=== PATIENT | male | born 1965 | race Hispanic/Latino ===

== ENCOUNTER 2018-02-09 16:32 | Inpatient (IN) | payer BC, SELFPAY ==
[2018-02-09] MEDS ORDERED: LABETALOL 20 MG/4ML SYRINGE IV ONE (17:40)
--- NOTE | 2018-02-09 18:06 | RAD REPORT ---
EXAM DESCRIPTION: CT - Head Brain Wo Cont - 02/09/2018 6:00 pm CLINICAL HISTORY: DIZZINESS Headache, visual disturbance COMPARISON: CT-STROKE BRAIN W/O CONTRAST dated 10/15/2014 TECHNIQUE: All CT scans are performed using dose optimization technique as appropriate and may inclu de automated exposure control or mA/KV adjustment according to patient size. FINDINGS: No intracranial hemorrhage, hydrocephalus or extra-axial fluid collection.Focal gliosis in the anterior right basal ganglia most compatible with old infarct.No areas of brain edema or evidenc e of midline shift. The paranasal sinuses and mastoids are clear. The calvarium is intact. IMPRESSION: No acute intracranial abnormality.
[2018-02-09 18:08] LABS: Absolute Lymphocytes (CBC) 1.9 K/uL (0.7-4.9); Absolute Monocytes 0.6 K/uL (0.1-1.3); Basophils % 0.3 % (0-1.3); Eosinophils % 1.2 % (0-4.4); Hematocrit 44.6 % (39.6-49.0); Lymphocytes % 24.7 % (15.3-44.8); MCH 31.1 pg (27.0-35.0); MCV 91.1 fL (80-100); MPV 7.7 fL (7.6-11.3); Monocytes % 7.5 % (3.3-12.3); Protime INR 0.82
[2018-02-09 18:16] LABS: ALT/SGPT 36 U/L (12-78); AST/SGOT 23 U/L (15-37); Albumin 3.8 g/dL (3.4-5.0); Alkaline Phosphatase 53 U/L (45-117); BUN Blood Urea Nitrogen 18 mg/dL (7-18); Bicarbonate 24 mmol/L (21-32); Bilirubin Direct < 0.1 mg/dL (0-0.2); Bilirubin Total 0.3 mg/dL (0.2-1.0); NT PRO-BNP 61 pg/mL (<125); Potassium 4.5 mmol/L (3.5-5.1); Sodium Level 136 mmol/L (136-145)
[2018-02-09 18:18] LABS: Glucose Level 401 mg/dL (74-106)
--- NOTE | 2018-02-09 18:24 | ER ---
Nurse's Notes [facility] Name: Jose Ramon Juan Age: 52 yrs Sex: Male : 1965 Arrival Date: 02/09/2018 Time: 16:35 Bed 28 Private MD: Brad Gurrola T Diagnosis: Essential (primary) hypertension;Type 2 diabetes mellitus with hyperglycemia;Cerebral infarction Presentation: 02/09 16:36 Presenting complaint: Patient states: Last , i started having dizziness spells, hj and double vision; reports nausea and vomiting; denies headache, today i started having tingling sensation; denies weakness, denies chest pain; hx of stroke, 3 years ago;. Transition of care: patient was not received from another setting of care. Onset of symptoms was February 09, 2018. Risk Assessment: Do you want to hurt yourself or someone else? Patient reports no desire to harm self or others. Initial Sepsis Screen: Does the patient meet any 2 criteria? No. Patient's initial sepsis screen is negative. Does the patient have a suspected source of infection? No. Patient's initial sepsis screen is negative. Care prior to arrival: None. 16:36 Method Of Arrival: Ambulatory 16:36 Acuity: SOURAV 3 hj Triage Assessment: 16:38 General: Appears in no apparent distress. uncomfortable, Behavior is calm, cooperative, hj appropriate for age. Pain: Denies pain. Historical: - Allergies: 16:38 No Known Drug Allergies; hj - Home Meds: 16:38 None [Active]; hj - PMHx: 16:38 CVA; Hypertension; Diabetes - NIDDM; hj - PSHx: 16:38 None; hj - Immunization history:: Adult Immunizations not up to date. - Social history:: Smoking status: Patient/guardian denies using tobacco, Patient/guardian denies using alcohol. - Ebola Screening: : Patient negative for fever greater than or equal to 101.5 degrees Fahrenheit, and additional compatible Ebola Virus Disease symptoms Patient denies exposure to infectious person Patient denies travel to an Ebola-affected area in the 21 days before illness onset. Screenin:38 Abuse screen: Denies threats or abuse. Denies injuries from another. Nutritional hj screening: No deficits noted. Tuberculosis screening: No symptoms or risk factors identified. Fall Risk None identified. Assessment: 17:14 General: Appears comfortable, Behavior is calm, cooperative. Pain: Denies pain. Neuro: mg2 Level of Consciousness is awake, alert, obeys commands, Oriented to person, place, time, situation. Cardiovascular: Capillary refill < 3 seconds Patient's skin is warm and dry. Respiratory: Airway is patent Respiratory effort is even, unlabored, Respiratory pattern is regular, symmetrical. GI: No signs and/or symptoms were reported involving the gastrointestinal system. : No signs and/or symptoms were reported regarding the genitourinary system. EENT: No signs and/or symptoms were reported regarding the EENT system. Derm: Skin is intact, Skin is pink, warm \T\ dry. normal. Musculoskeletal: No signs and/or symptoms reported regarding the musculoskeletal system. 21:44 Reassessment: 2nd floor nurse will call back to receive the report. mg2 Vital Signs: 16:38 BP 191 / 103; Pulse 110; Resp 18; Temp 98.2(O); Pulse Ox 99% on R/A; Weight 111.13 kg; hj Height 5 ft. 8 in. (172.72 cm); Pain 0/10; 17:15 BP 200 / 112; Pulse 102; Resp 18; Pulse Ox 98% on R/A; Pain 0/10; mg2 18:22 BP 126 / 66; Pulse 103; Resp 18; Pulse Ox 98% on R/A; Pain 0/10; mg2 20:39 BP 136 / 71; Pulse 98; Resp 18; Pulse Ox 98% on R/A; Pain 0/10; mg2 16:38 Body Mass Index 37.25 (111.13 kg, 172.72 cm) hj NIH Stroke Scale Scores: 17:32 NIHSS Score: [address] [facility] ED Course: 16:35 Patient arrived in ED. rg4 16:35 Brad Gurrola MD is Private Physician. rg4 16:37 Triage completed. hj 16:38 Arm band placed on right wrist. hj 16:38 Patient has correct armband on for positive identification. Placed in gown. Bed in low hj position. Call light in reach. Side rails up X 1. 17:07 Félix Jarvis, RN is Primary Nurse. mg2 17:09 EKG done, by bike technician. reviewed by Yousif Helms MD. 3 17:16 Everton Henry PA is PHCP. jr8 17:16 Yousif Helms MD is Attending Physician. jr8 17:46 Inserted saline lock: 20 gauge in left antecubital area, using aseptic technique. Blood mg2 collected. 17:59 CT Head Brain wo Cont In Process Unspecified. EDMS 17:59 [address] completed. Patient moved to CT via wheelchair. Patient moved back from CT. kw1 18:21 Bruna Pino MD is Hospitalizing Provider. jr8 18:31 XRAY Chest (1 view) In Process Unspecified. EDMS 21:44 No provider procedures requiring assistance completed. Patient admitted, IV remains in mg2 place. Administered Medications: 17:46 Drug: Labetalol 10 mg Route: IVP; Infused Over: 2 mins; Site: left antecubital; mg2 18:22 Follow up: Response: No adverse reaction; Blood pressure is lowered mg2 18:30 Drug: NS 0.9% 1000 ml Route: IV; Rate: 1000 ml; Site: left antecubital; mg2 22:15 Follow up: Response: No adverse reaction; IV Status: Completed infusion mg2 18:33 Drug: Insulin Regular Human 10 units {Co-Signature: kr2 (Shu Proctor RN).} Route: IVP; mg2 Site: left antecubital; 22:15 Follow up: Response: No adverse reaction; Blood sugar is lowered mg2 Point of Care Testing: Blood Glucose: 19:37 Blood Glucose: 243 mg/dL; mg2 Ranges: Outcome: 18:23 Decision to Hospitalize by Provider. jr8 22:15 Admitted to Med/surg accompanied by tech, via wheelchair, room 228, with chart, Report mg2 called to Juan Carlos 22:15 Condition: stable 22:15 Instructed on the need for admit, Demonstrated understanding of instructions. 22:16 Patient left the ED. mg2 NIH Stroke Scale - NIH Stroke Score Date: 02/09/2018 Time: 17:32 Total Score = 1 1a. Level of Consciousness (LOC) - 0(Alert) 1b. Level of Consciousness (LOC) (Year \T\ Age) - 0(Both) 1c. LOC Commands (Open \T\ Closes Eyes/Category Specialist) - 0(Both) 2. Best Gaze (Lateral Gaze Paresis) - 0(Normal) 3. Visual Field Loss - 0(No visual loss) 4. Facial Palsy - 0(Normal) 5a. Left Arm: Motor (10-second hold) - 0(No drift) 5b. Right Arm: Motor (10-second hold) - 0(No drift) 6a. Left Leg: Motor (5-second hold - always test supine) - 0(No drift) 6b. Right Leg: Motor (5-second hold - always test supine) - 0(No drift) 7. Limb Ataxia (finger/nose \T\ heel/whatley - test with eyes open) - 0(Absent) 8. Sensory Loss (pinprick arms/legs/face) - 1(Mild to moderate loss) 9. Best Language: Aphasia (description/naming/reading) - 0(No aphasia) 10. Dysarthria (speech clarity - read or repeat words) - 0(Normal) 11. Extinction and Inattention (visual/tactile/auditory/spatial/personal) - 0(No abnormality) Initials: jr8 Signatures: Dispatcher [employer] EDMS Everton Henry PA PA jr8 Sterling Maravilla RN RN Michelle Joshua 4 Mariaelena Butt1 Félix Jarvis RN RN [facility] [place] [place] Krystin Hummel 3 Shu Proctor RN kr2 Corrections: (The following items were deleted from the chart) 16:39 16:36 Presenting complaint: Patient states: Last , i started having dizziness spells, and double vision; reports nausea and vomiting; denies headache, today i started having tingling sensation; 16:40 16:38 111.13 kg; Height 5 ft. 8 in.; BMI: 37.2; Pain 0/10; [facility] 16:41 16:36 Presenting complaint: Patient states: Last , i started having dizziness spells, and double vision; reports nausea and vomiting; denies headache, today i started having tingling sensation; hx of stroke, 3 years ago; 16:41 16:38 Pulse 110bpm; Resp 18bpm; Pulse Ox 99% RA; Temp 98.2F Oral; 111.13 kg; hj Height 5 ft. 8 in.; BMI: 37.2; Pain 0/10; 16:43 16:36 Acuity: SOURAV 4 [facility]
--- NOTE | 2018-02-09 18:24 | EDPHYS ---
Physician Documentation [facility] Name: Jose Ramon Juan Age: 52 yrs Sex: Male : 1965 Arrival Date: 02/09/2018 Time: 16:35 Bed 28 Private MD: Brad Gurrola T ED Physician Yousif Helms HPI: 02/09 17:32 This 52 yrs old Male presents to ER via Ambulatory with complaints of jr8 Dizziness. 17:32 The patient presents with dizziness, lightheadedness, feeling off balance. Onset: The jr8 symptoms/episode began/occurred acutely, 4 day(s) ago. Context: occurred at home. Modifying factors: The symptoms are alleviated by nothing, the symptoms are aggravated by standing up, changing position. Associated signs and symptoms: Pertinent positives: numbness, tingling. Severity of symptoms: At their worst the symptoms were moderate in the emergency department the symptoms are unchanged. Patient's baseline: Neuro: alert and fully oriented, Motor: no deficits, Ambulation: walks without assistance, Speech: normal. The patient has not experienced similar symptoms in the past. The patient has not recently seen a physician. History of CVA in past. Non compliant with all medicines currently due to lac of insurance . Historical: - Allergies: 16:38 No Known Drug Allergies; hj - Home Meds: 16:38 None [Active]; hj - PMHx: 16:38 CVA; Hypertension; Diabetes - NIDDM; hj - PSHx: 16:38 None; hj - Immunization history:: Adult Immunizations not up to date. - Social history:: Smoking status: Patient/guardian denies using tobacco, Patient/guardian denies using alcohol. - Ebola Screening: : Patient negative for fever greater than or equal to 101.5 degrees Fahrenheit, and additional compatible Ebola Virus Disease symptoms Patient denies exposure to infectious person Patient denies travel to an Ebola-affected area in the 21 days before illness onset. ROS: 17:32 Eyes: Negative for injury, pain, redness, and discharge, ENT: Negative for injury, jr8 pain, and discharge, Neck: Negative for injury, pain, and swelling, Cardiovascular: Negative for chest pain, palpitations, and edema, Respiratory: Negative for shortness of breath, cough, wheezing, and pleuritic chest pain, Abdomen/GI: Negative for abdominal pain, nausea, vomiting, diarrhea, and constipation, Back: Negative for injury and pain, MS/Extremity: Negative for injury and deformity, Skin: Negative for injury, rash, and discoloration. 17:32 Neuro: Positive for dizziness, numbness, tingling, visual changes, Negative for altered mental status, gait disturbance, loss of consciousness, seizure activity, speech changes, tremor, weakness. Exam: 17:32 Eyes: Pupils equal round and reactive to light, extra-ocular motions intact. Lids and jr8 lashes normal. Conjunctiva and sclera are non-icteric and not injected. Cornea within normal limits. Periorbital areas with no swelling, redness, or edema. ENT: Nares patent. No nasal discharge, no septal abnormalities noted. Tympanic membranes are normal and external auditory canals are clear. Oropharynx with no redness, swelling, or masses, exudates, or evidence of obstruction, uvula midline. Mucous membranes moist. Neck: Trachea midline, no thyromegaly or masses palpated, and no cervical lymphadenopathy. Supple, full range of motion without nuchal rigidity, or vertebral point tenderness. No Meningismus. Cardiovascular: Sinus Tachycardia with noram rhythm and a normal S1 and S2. No gallops, murmurs, or rubs. Normal PMI, no JVD. No pulse deficits. Respiratory: Lungs have equal breath sounds bilaterally, clear to auscultation and percussion. No rales, rhonchi or wheezes noted. No increased work of breathing, no retractions or nasal flaring. Abdomen/GI: Soft, non-tender, with normal bowel sounds. No distension or tympany. No guarding or rebound. No evidence of tenderness throughout. Back: No spinal tenderness. No costovertebral tenderness. Full range of motion. Skin: Warm, dry with normal turgor. Normal color with no rashes, no lesions, and no evidence of cellulitis. MS/ Extremity: Pulses equal, no cyanosis. Neurovascular intact. Full, normal range of motion. 17:32 Neuro: Orientation: to person, place, time \T\ situation. Mentation: is normal, Memory: is normal, immediate memory is intact, recent memory is intact, remote memory is intact, Cranial nerves: CN I not tested, CN II- XII are normal as tested, visual gomez are intact. extraocular movements are intact, Facial palsy and sensory deficits are absent. Speech is clear and appropriate. Tongue strength is normal, Cerebellar function: normal finger to nose testing, heel to whatley testing is normal, Motor: moves all fours, strength is 5/5 in all extremities, Sensation: numbness, that is mild, of the right arm, tingling, that is mild, of the right arm, Gait: not tested. seizure activity, is not displayed by the patient, Abnormal movements: there are no abnormal movements. Vital Signs: 16:38 BP 191 / 103; Pulse 110; Resp 18; Temp 98.2(O); Pulse Ox 99% on R/A; Weight 111.13 kg; hj Height 5 ft. 8 in. (172.72 cm); Pain 0/10; 17:15 BP 200 / 112; Pulse 102; Resp 18; Pulse Ox 98% on R/A; Pain 0/10; mg2 18:22 BP 126 / 66; Pulse 103; Resp 18; Pulse Ox 98% on R/A; Pain 0/10; mg2 20:39 BP 136 / 71; Pulse 98; Resp 18; Pulse Ox 98% on R/A; Pain 0/10; mg2 16:38 Body Mass Index 37.25 (111.13 kg, 172.72 cm) NIH Stroke Scale Scores: 17:32 NIHSS Score: 1 jr8 MDM: 17:16 Patient medically screened. jr8 18:20 Data reviewed: vital signs, nurses notes, lab test result(s), EKG, radiologic studies, jr8 CT scan, plain films, and as a result, I will admit patient. Data interpreted: Pulse oximetry: on room air is 98 %. Interpretation: normal. Counseling: I had a detailed discussion with the patient and/or guardian regarding: the historical points, exam findings, and any diagnostic results supporting the discharge/admit diagnosis, lab results, radiology results, the need for further work-up and treatment in the hospital. 02/09 17:16 Order name: LFT's; Complete Time: 18:19 8 02/09 17:16 Order name: NT PRO-BNP; Complete Time: 18:19 8 02/09 17:16 Order name: Basic Metabolic Panel; Complete Time: 18:19 8 02/09 17:16 Order name: CBC with Diff; Complete Time: 18:8 02/09 17:16 Order name: Magnesium; Complete Time: 18:19 [facility] 02/09 17:16 Order name: PT-INR; Complete Time: 18:18 [facility] 02/09 17:16 Order name: Troponin (emerg Dept Use Only); Complete Time: 18:13 [facility] 02/09 17:16 Order name: XRAY Chest (1 view); Complete Time: 18:53 [facility] 02/09 17:25 Order name: CT Head Brain wo Cont; Complete Time: 18:10 [facility] 02/09 18:42 Order name: Echo with Doppler [facility] 02/09 18:42 Order name: Stroke Protocol [facility] 02/09 18:42 Order name: Carotid Artery Bilateral; Complete Time: 20:47 [facility] 02/09 20:03 Order name: Urine Dipstick--Ancillary (enter results) [facility] 02/09 20:07 Order name: Urine Dipstick-Ancillary; Complete Time: 20:16 [facility] 02/09 16:41 Order name: EKG; Complete Time: 16:41 02/09 17:16 Order name: Cardiac monitoring; Complete Time: 17:46 [facility] 02/09 17:16 Order name: EKG - Nurse/Tech; Complete Time: 17:46 [facility] 02/09 17:16 Order name: IV Saline Lock; Complete Time: 17:46 [facility] 02/09 17:16 Order name: Labs collected and sent; Complete Time: 17:46 [facility] 02/09 17:16 Order name: O2 Per Protocol; Complete Time: 17:32 [facility] 02/09 17:16 Order name: O2 Sat Monitoring; Complete Time: 17:32 [facility] 02/09 18:41 Order name: NPO [facility] 02/09 18:41 Order name: NPO [facility] 02/09 18:42 Order name: Physical Therapy Consult [facility] 02/09 18:42 Order name: Speech Therapy Consult [facility] 02/09 18:42 Order name: NPO [facility] 02/09 19:24 Order name: CONS Physician Consult [facility] 02/09 17:16 Order name: Urine Dipstick-Ancillary (obtain specimen); Complete Time: 22:15 jr8 Administered Medications: 17:46 Drug: Labetalol 10 mg Route: IVP; Infused Over: 2 mins; Site: left antecubital; mg2 18:22 Follow up: Response: No adverse reaction; Blood pressure is lowered mg2 18:30 Drug: NS 0.9% 1000 ml Route: IV; Rate: 1000 ml; Site: left antecubital; mg2 22:15 Follow up: Response: No adverse reaction; IV Status: Completed infusion mg2 18:33 Drug: Insulin Regular Human 10 units {Co-Signature: kr2 (Shu Proctor RN).} Route: IVP; mg2 Site: left antecubital; 22:15 Follow up: Response: No adverse reaction; Blood sugar is lowered mg2 Point of Care Testing: Blood Glucose: 19:37 Blood Glucose: 243 mg/dL; mg2 Ranges: Critical Glucose Levels:Adult <50 mg/dl or >400 mg/dl <40 mg/dl or >180 mg/dl Disposition: 02/10 07:02 Co-signature as Attending Physician, Yousif Helms MD I agree with the assessment and kostas plan of care. Disposition: 02/09/18 18:23 Hospitalization ordered by Bruna Pino for Inpatient Admission. Preliminary diagnosis are Essential (primary) hypertension, Type 2 diabetes mellitus with hyperglycemia, Cerebral infarction. - Bed requested for Telemetry/MedSurg (Inpatient). - Status is Inpatient Admission. mg2 - Condition is Stable. - Problem is new. - Symptoms are unchanged. UTI on Admission? No NIH Stroke Scale - NIH Stroke Score Date: 02/09/2018 Time: 17:32 Total Score = 1 1a. Level of Consciousness (LOC) - 0(Alert) 1b. Level of Consciousness (LOC) (Year \T\ Age) - 0(Both) 1c. LOC Commands (Open \T\ Closes Eyes/Underwriting Operations Manager) - 0(Both) 2. Best Gaze (Lateral Gaze Paresis) - 0(Normal) 3. Visual Field Loss - 0(No visual loss) 4. Facial Palsy - 0(Normal) 5a. Left Arm: Motor (10-second hold) - 0(No drift) 5b. Right Arm: Motor (10-second hold) - 0(No drift) 6a. Left Leg: Motor (5-second hold - always test supine) - 0(No drift) 6b. Right Leg: Motor (5-second hold - always test supine) - 0(No drift) 7. Limb Ataxia (finger/nose \T\ heel/whatley - test with eyes open) - 0(Absent) 8. Sensory Loss (pinprick arms/legs/face) - 1(Mild to moderate loss) 9. Best Language: Aphasia (description/naming/reading) - 0(No aphasia) 10. Dysarthria (speech clarity - read or repeat words) - 0(Normal) 11. Extinction and Inattention (visual/tactile/auditory/spatial/personal) - 0(No abnormality) Initials: jr8 Signatures: Dispatcher [employer] EDMS Mariaelena Diaz RN RN Yousif Mcdonald MD MD cha Roszak, Josh, PA PA jr8 Sterling Maravilla RN RN hj Félix Jarvis RN RN mg2 Shu Proctor RN kr2 Corrections: (The following items were deleted from the chart) 02/09 21:11 18:23 Hospitalization Ordered by Bruna Pino MD for Inpatient Admission. kl Preliminary diagnosis is Essential (primary) hypertension; Type 2 diabetes mellitus with hyperglycemia; Cerebral infarction. Bed requested for Telemetry/MedSurg (Inpatient). Status is Inpatient Admission. Condition is Stable. Problem is new. Symptoms are unchanged. UTI on Admission? No. jr8 22:16 21:11 02/09/2018 18:23 Hospitalization Ordered by Bruna Pino MD for Inpatient mg2 Admission. Preliminary diagnosis is Essential (primary) hypertension; Type 2 diabetes mellitus with hyperglycemia; Cerebral infarction. Bed requested for Telemetry/MedSurg (Inpatient). Status is Inpatient Admission. Condition is Stable. Problem is new. Symptoms are unchanged. UTI on Admission? No. kl
[2018-02-09] MEDS ORDERED: INSULIN -REGULAR HUMAN 50 UNIT/0.5 ML ML ONE (18:29)
[2018-02-09] MEDS ORDERED: NA CHLORIDE 0.9% 1,000 ML ONE (18:30)
[2018-02-09] MEDS ORDERED: ACETAMINOPHEN 500 MG TAB PO PRN (18:34)
[2018-02-09] MEDS ORDERED: ONDANSETRON 4 MG/2 ML VIAL IV PRN (18:34)
--- NOTE | 2018-02-09 18:44 | RAD REPORT ---
EXAM DESCRIPTION: RAD - Chest Single View - 02/09/2018 6:31 pm CLINICAL HISTORY: dizziness Chest pain. COMPARISON: <Comparisons> FINDINGS: Portable technique limits examination quality. The lungs are grossly clear. The heart is normal in size. No displaced fractures. IMPRESSION: No acute intrathoracic process suspected.
--- NOTE | 2018-02-09 19:09 | EKG ---
Test Date: 2018-02-09 Test Time: 16:48:57 Printing Press Operator: [place] MEASUREMENT RESULTS: Intervals: Rate: 106 SD: 160 QRSD: 82 QT: 332 QTc: 441 [place]: P: 50 SD: 160 QRS: 41 T: 256 INTERPRETIVE STATEMENTS: Sinus tachycardia T wave abnormality, consider inferior ischemia Abnormal ECG Compared to ECG 10/15/2014 18:04:10 T-wave abnormality now present Possible ischemia now present Sinus rhythm no longer present Left ventricular hypertrophy no longer present Electronically Signed On 02-09-18 19:08:10 CDT by Mark Cook
[2018-02-09 20:07] LABS: Urine Blood 1+ (NEG); Urine Glucose 2+ (NEG); Urine Protein NEGATIVE (NEG); Urine Specific Gravity 1.015 (1.005-1.030); Urine pH 5.5 (5.0-7.0)
--- NOTE | 2018-02-09 20:40 | RAD REPORT ---
EXAM DESCRIPTION: VAS - CP - 02/09/2018 8:34 pm CLINICAL HISTORY: CVA COMPARISON: Head Brain Wo Cont dated 02/09/2018 TECHNIQUE: Real-time sonographic evaluation of both carotid systems was performed. Doppler interroga tion was performed with waveform tracing bilaterally. FINDINGS: Normal high resistance waveforms are noted in both external carotid arteries. The common c arotid arteries and internal carotid arteries show normal low resistance waveforms. Mild hard plaque is present in both carotid bulbs. Peak systolic and end diastolic velocity values an d the ICA/CCA ratios are in the non-hemodynamically significant range. Antegrade flow seen in both vertebral arteries. IMPRESSION: Mild hard plaque is present in both carotid bulbs. No evidence of a hemodynamically significant stenosis.
[2018-02-09 22:37] VITALS: BMI 37.4
[2018-02-09] MEDS: NA CHLORIDE 0.9% 1,000 ML IV SCH (23:46)
[2018-02-09] MEDS: ATORVASTATIN 20 MG TAB PO SCH (23:46)
[2018-02-09] MEDS: CLOPIDOGREL 75 MG TABLET PO SCH (23:47)
[2018-02-09] MEDS: INSULIN -REGULAR HUMAN 50 UNIT/0.5 ML ML SQ SCH (23:47)
[2018-02-09] MEDS: ENOXAPARIN 40 MG/0.4 ML SQ SCH (23:47)
--- NOTE | 2018-02-10 05:22 | P.HP ---
Certification for Inpatient Patient admitted to: Observation With expected LOS: <2 Midnights Patient will require the following post-hospital care: None Practitioner: I am a practitioner with admitting privileges, knowledge of patient current condition, hospital course, and medical plan of care. Services: Services provided to patient in accordance with Admission requirements found in Title 42 Section 412.3 of the Code of Federal Regulations Patient History Date of Service: 02/09/18 Reason for admission: Dizziness/CVA vs. TIA/uncontrolled hypertension History of Present Illness: Patient is a 52-year-old gentleman who came into the hospital with dizziness. He started having dizziness a few days ago and his symptoms got progressively worse. He came into the emergency room for further evaluation. Patient was diagnose with a CVA 2 and half years ago. At that time his blood pressure was very poorly controlled. He woke up with the right side of his body weak. He and get evaluated for a day and a half and he was told later that he had a stroke. He was started on cholesterol medicine and anti-platelet medicine. However, he lost his job or he changed jobs and did not have health insurance anymore. He has not been taking any medicine for about a year. His blood pressure has been poorly controlled but today was much higher than normal. Arriving into the emergency room, his blood pressure was 190/100. Patient had right-sided weakness once again. This was along with the dizziness he was experiencing. He was also found to have an elevated blood sugar of greater than 400. He was admitted to the hospital for further workup for possible stroke if poorly-controlled blood pressure and blood sugars. Allergies No Known Drug Allergies Allergy (Verified 02/10/18 02:17) Unknown Home Medications: NK [No Home Meds] 02/09/18 - Past Medical/Surgical History Has patient received pneumonia vaccine in the past: No Diabetic: Yes -: HTN -: DM -: CVA Past Surgical History: Patient denies surgical history - Family History Father Medical History: Cancer Mother Medical History: Heart disease, Hypertension, Diabetes - Social History Smoking Status: Never smoker Alcohol use: No CD- Drugs: No Caffeine use: Yes Place of Residence: Home Review of Systems 10-point ROS is otherwise unremarkable Physical Examination - Vital Signs Temperature: 97.7 F Blood Pressure: 158/93 Pulse: 89 Respirations: 20 Pulse Ox (%): 96 - Physical Exam General: Alert, In no apparent distress, Oriented x3 HEENT: Atraumatic, PERRLA, Mucous membr. moist/pink, EOMI, Sclerae nonicteric Neck: Supple, 2+ carotid pulse no bruit, No LAD, Without JVD or thyroid abnormality Respiratory: Clear to auscultation bilaterally, Normal air movement Cardiovascular: Regular rate/rhythm, Normal S1 S2, No murmurs Gastrointestinal: Normal bowel sounds, Soft and benign, Non-distended, No tenderness, No rebound, No guarding Musculoskeletal: No clubbing, No swelling, No tenderness Integumentary: No rashes Neurological: Normal gait, Normal speech, Normal strength at 5/5 x4 extr, Normal tone, Sensation intact, Cranial nerves 3-12 intact, Normal affect Lymphatics: No axilla or inguinal lymphadenopathy - Studies Laboratory Data (last 24 hrs) 02/09/18 17:40: PT 9.6, INR 0.82 02/09/18 17:40: WBC 7.6, Hgb 15.2, Hct 44.6, Plt Count 249 02/09/18 17:40: Sodium 136, Potassium 4.5, BUN 18, Creatinine 1.00, Glucose 401 H*, Magnesium 2.0, Total Bilirubin 0.3, AST 23, ALT 36, Alkaline Phosphatase 53 Assessment & Plan - Problems (Diagnosis) (1) TIA (transient ischemic attack) Current Visit: Yes Status: Acute (2) Hypertension, malignant Current Visit: Yes Status: Acute (3) Hyperglycemia Current Visit: Yes Status: Acute (4) DM type 2, uncontrolled, with neuropathy Current Visit: Yes Status: Acute - Plan Plan: 1. Anti-platelet therapy 2. Statin therapy 3. PT evaluation 4. MRI of the brain 5. Echocardiogram 6. Lipid profile 7. DVT prophylaxis 8. Neurology consultation 9. Strict blood pressure and blood sugar control 10. GI and DVT prophylaxis Discharge Plan: Home Plan to discharge in: 24 Hours - Advance Directives Does patient have a Living Will: No Does patient have a Durable POA for Healthcare: No - Code Status/Comfort Care Code Status Assessed: Yes Code Status: Full Code Critical Care: No Time Spent Managing PTS Care (In Minutes): 50
[2018-02-10 05:49] LABS: Absolute Lymphocytes (CBC) 2.1 K/uL (0.7-4.9); Absolute Monocytes 0.5 K/uL (0.1-1.3); Absolute Neutrophil 3.6 K/uL (1.8-8.0); Basophils % 0.4 % (0-1.3); Eosinophils % 1.8 % (0-4.4); Hematocrit 39.9 % (39.6-49.0); Lymphocytes % 33.7 % (15.3-44.8); MCH 31.9 pg (27.0-35.0); MCV 90.2 fL (80-100); MPV 7.4 fL (7.6-11.3); Monocytes % 7.4 % (3.3-12.3); RBC Red Blood Cell Count 4.42 M/uL (4.33-5.43)
[2018-02-10 05:59] LABS: ALT/SGPT 30 U/L (12-78); AST/SGOT 16 U/L (15-37); Albumin 3.5 g/dL (3.4-5.0); Alkaline Phosphatase 44 U/L (45-117); BUN Blood Urea Nitrogen 9 mg/dL (7-18); Bicarbonate 27 mmol/L (21-32); Bilirubin Total 0.3 mg/dL (0.2-1.0); Glucose Level 188 mg/dL (74-106); HDL Cholesterol 42 mg/dL (40-60); LDL Cholesterol, Calculated 150 (<130); Potassium 3.5 mmol/L (3.5-5.1); Sodium Level 140 mmol/L (136-145)
[2018-02-10] MEDS ORDERED: VALSARTAN 160 MG TAB PO SCH (06:00)
[2018-02-10] MEDS ORDERED: VALSARTAN 80 MG TAB ONE (06:41)
[2018-02-10] MEDS: INSULIN -REGULAR HUMAN 50 UNIT/0.5 ML ML SQ SCH ×5 (07:30→21:37)
[2018-02-10] MEDS: NA CHLORIDE 0.9% 1,000 ML IV SCH ×2 (08:20→21:38)
[2018-02-10] MEDS ORDERED: ASPIRIN EC 81 MG TAB PO SCH (09:00)
[2018-02-10] MEDS ORDERED: VALSARTAN 80 MG TAB PO SCH (09:00)
[2018-02-10] MEDS ORDERED: POTASSIUM 25 MEQ EFFERV TAB PO ONE (09:00)
[2018-02-10] MEDS: ENOXAPARIN 40 MG/0.4 ML SQ SCH (10:24)
[2018-02-10] MEDS: CLOPIDOGREL 75 MG TABLET PO SCH (10:25)
--- NOTE | 2018-02-10 10:34 | RAD REPORT ---
EXAM DESCRIPTION: MRI - Stroke Protocol - 02/10/2018 10:03 am CLINICAL HISTORY: dizziness, CVA, diplopia CVA. COMPARISON: Head Brain Wo Cont dated 02/09/2018; CT-STROKE BRAIN W/O CONTRAST dated 10/15/2014; Carotid Artery Bilateral dated 02/09/2018 TECHNIQUE: MRI of brain with diffusion-weighted imaging with contrast 3D [id number] non contrast MR angiography of the [place]. 2D [id number] post contrast MR angiography of the neck vessels. Approximately 20 cc of Magnevist contrast was administered during the study. FINDINGS: Crescentic area of restricted diffusion and is seen in the left lateral aspect of the rod measuring 15 x 6 mm. This area demonstrates diminished ADC mapping compatible with acute CVA. No hem orrhagic component seen. No intracranial hemorrhage, hydrocephalus or midline shift. Gliosis in the region of the right basal ganglia anteriorly small is compatible with old infarct. The midline structures are normally formed. Post-contrast imaging through the brain shows no abnormal enhancement to suggest tumor or infection. Mastoid air cells and paranasal sinuses are clear. MR angiography of the [place] shows no aneurysm or vascular malformation. Evidence of a foca l prominent stenosis of midbasilar artery is noted. MR angiography of the neck vessels shows no significant carotid stenosis. Antegrade flow is seen in b oth vertebral arteries. IMPRESSION: Acute nonhemorrhagic CVA (15 x 6 mm) left lateral rod. 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 Findings were discussed with Dr. Pino at 10:30 a.m. 02/10/2018 by telephone.
--- NOTE | 2018-02-10 14:55 | PN ---
Date of Progress Note: 02/10/2018 Subjective: The patient is seen and examined. Chart reviewed and case discussed with RN. The patie nt doing well. His diplopia has improved. Review of Systems: Negative except as above. Medications: List reviewed. Physical Examination: Vital Signs: Temperature 97.2, heart rate 80, blood pressure 154/83, respirations 18, O2 96% on room air. General: Awake, alert, oriented x3, not in any acute distress. Obese male, BMI 37.4. CV: S1, S2. No murmurs. Peripheral pulses present. Regular rate and rhythm. Respiratory: Clear to auscultation bilaterally. No wheezing. No stridor. No use of accessory musc les. Gastrointestinal: Abdomen is soft, nontender, nondistended. Positive bowel sounds. Extremities: No clubbing, cyanosis, or edema. Neuro: Cranial nerves 2 through 12 intact grossly. The patient does have some nystagmus. Strength is 5/5 bilateral upper and lower extremities. Sensation intact to light touch. Speech is normal. N o facial asymmetry. Laboratory Data: Sodium 140, potassium 3.5, chloride 107, CO2 27, BUN 9, creatinine 0.6, glucose 188 , calcium 8.5. Triglycerides 259, cholesterol 244, LDL 150, HDL 42. WBC 6.3, H and H 14.1 and 39.9, platelets 231. Head MRI, MRA neck shows acute nonhemorrhagic CVA 15 x 6 mm in the left lateral rod , focal moderate to significant stenosis suspected in the mid basilar artery. Assessment And Plan: A 52-year-old male with: 1.Acute cerebrovascular accident, left lateral rod. MRI reviewed. Further workup pending. Ultras ound of the carotid artery shows mild hard plaque in both carotid bulbs. No evidence of hemodynamica lly significant stenosis. 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 We will discuss with neurologist, Dr. Shani regarding further intervention and possible transfer. Fo r now, the patient will be on aspirin and Plavix. The patient had not been taking his medications fo r 1 year or longer. 2.Accelerated hypertension, not well controlled. We will resume p.o. medications. The patient has not been on any medications for the past year. 3.Diabetes mellitus type 2, uncontrolled with hyperglycemia and neuropathy, non-insulin requiring. 4.Previous history of cerebrovascular accident. 5.Noncompliant. 6.Gastrointestinal and deep venous thrombosis prophylaxis with PPI and Lovenox. Plan: We will allow permissive hypertension due to acute stroke with systolics in the 160s to 180s a nd we will discuss with Neurology for possible intervention and transfer if needed. Follow up an ech ocardiogram. /ANATOLY Voice ID: [id number] Report ID: [id number]
--- NOTE | 2018-02-10 14:58 | ECHO ---
HEIGHT: 5 ft 8 in WEIGHT: 246 lb 0 oz DATE OF STUDY: 02/10/[address]: Bruna Pino MD 2-DIMENSIONAL: YES M.MODE: YES DOPPLER: YES COLOR FLOW: YES TDS: NO PORTABLE: NO DEFINITY: NO BUBBLE STUDY: NO DIAGNOSIS: STROKE CARDIAC HISTORY: CATHERIZATION: NO SURGERY: NO PROSTHETIC VALVE: NO PACEMAKER: NO MEASUREMENTS (cm) DIASTOLIC (NORMALS) SYSTOLIC (NORMALS) IVSd 1.0 (0.6-1.2) LA Diam 2.5 (1.9-4.0) LVEF 52% LVIDd 3.5 (3.5-5.7) LVIDs 2.6 (2.0-3.5) %FS 26% LVPWd 0.9 (0.6-1.2) Ao Diam 3.2 (2.0-3.7) 2 DIMENSIONAL ASSESSMENT: RIGHT ATRIUM: NORMAL LEFT ATRIUM: NORMAL RIGHT VENTRICLE: NORMAL LEFT VENTRICLE: NORMAL TRICUSPID VALVE: NORMAL MITRAL VALVE: NORMAL PULMONIC VALVE: NORMAL AORTIC VALVE: NORMAL PERICARDIAL EFFUSION: NONE AORTIC ROOT: NORMAL LEFT VENTRICULAR WALL MOTION: NORMAL DOPPLER/COLOR FLOW: NORMAL COMMENTS: NORMAL 2D ECHOCARDIOGRAM WITH DOPPLER. NO WALL MOTION ABNORMALITY. NO EFFUSION. TECHNOLOGIST: Karmen DACOSTA
[2018-02-10 21:14] VITALS: BP 163/95; TEMP 97.4
[2018-02-10] MEDS: ATORVASTATIN 20 MG TAB PO SCH (21:37)
[2018-02-11 03:16] VITALS: O2SAT 94
--- NOTE | 2018-02-11 17:12 | DS ---
Date of Discharge: 02/10/2018 Consultants: Dr. Sahni with Neurology. Admitting Diagnoses: 1.Transient ischemic attack, rule out cerebrovascular accident. 2.Malignant hypertension. 3.Hyperglycemia. 4.Type 2 diabetes, uncontrolled with neuropathy. 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 2.Accelerated hypertension. 3.Diabetes mellitus type 2, uncontrolled with hyperglycemia and neuropathy, non-insulin requiring. 4.Previous history of cerebrovascular accident. 5.Noncompliance. Hospital Course: The patient is a 52-year-old male, who is noncompliant with his medications for at least the past year, comes in with dizziness, diplopia. The patient was admitted to the hospital for further evaluation. He did have uncontrolled blood pressure in the 190s over 100s. His blood sugar s were in the 400s. The patient was admitted for rule out CVA. Head CT scan did not show any acute abnormalities. MRA and MRI neck were done, which showed an acute nonhemorrhagic CVA in the left late ral rod and showed focal moderate to significant stenosis suspected in the mid basilar artery. Dr. Sahni, neurologist, was consulted on the case, recommended transfer to higher level of care for po ssible intervention for this stenosis of the basilar artery with angioplasty or local thrombectomy. The patient was then referred for higher level of care in [facility] and was accepted. The patient was discharged in a fair condition for intervention for his basilar artery stenosis. Physical Examination: For physical exam findings, please see progress note dictated on the day of discharge. /ANATOLY Voice ID: [id number] Report ID: [id number]
== END 2018-02-10 23:00 | disposition short-term general hospital (02) | DRG 66 ==
LOC: ER 16:32 → INTOOBSV 19:23 → ERHOLD 19:23 → 2ND 21:14 → OBSVTOIN 02-10 10:44
PROVIDERS: ADMIT Family Medicine; ATTEND Family Medicine
DX: I63.9 Cerebral infarction, unspecified (principal); E11.65 Type 2 diabetes mellitus with hyperglycemia; I10 Essential (primary) hypertension; I65.1 Occlusion and stenosis of basilar artery; E11.40 Type 2 diabetes mellitus with diabetic neuropathy, unspecified; Z86.73 Personal history of transient ischemic attack (TIA), and cerebral infarction without residual deficits; R29.701 NIHSS score 1; Z91.14 Patient's other noncompliance with medication regimen; E66.9 Obesity, unspecified; Z68.37 Body mass index [BMI] 37.0-37.9, adult
CPT/HCPCS: 36415; 70450; 70544; 70549; 70553; 71045; 80048; 80053; 80061; 80076; 81003; 82962; 83735; 83880; 84484; 85025; 85610; 93005; 93306; 93880; 94760; 96361; 96374; 96375; 97163; 99285; A9577; G0378; J1650; J7030

== ENCOUNTER 2018-02-14 19:05 | Emergency (ER) | payer SELFPAY ==
--- OUTSIDE RECORDS SUMMARY | 2018-02-14 19:07 | XMS REPORT ---
:1965 [facility] Address [address] [place] [address] [address] [place] [address] Care Team Providers Name Role Phone DEEPTI SANTIAGOCORKYMAILE JUAN F Unavailable Unavailable Problems This patient has no known problems. Allergies, Adverse Reactions, Alerts This patient has no known allergies or adverse reactions. Medications This patient has no known medications. Results Test Description Test Time Test Comments Text Results Atomic Results Result Comments POCT-GLUCOSE METER 2018-02-12 16:06:00 Test Item Value Reference Range Comments POC-GLUCOSE METER (BEAKER) (test 201 mg/dL 70-110 TESTED AT [address] xtns=[id number]) [facility] [address] TSH/FREE T4 IF [id number] 14:35:00 Test Item Value Reference Range Comments THYROID STIMULATING HORMONE (BEAKER) (test 0.92 uIU/mL 0.35-4.94 vhme=081) POCT-GLUCOSE [id number] 10:39:00 Test Item Value Reference Range Comments POC-GLUCOSE METER (BEAKER) 214 mg/dL 70-110 TESTED AT [address] (test ntmb=8889) [facility] [id number] POCT-GLUCOSE [id number] 07:32:00 Test Item Value Reference Range Comments POC-GLUCOSE METER (BEAKER) 217 mg/dL 70-110 TESTED AT [address] (test jqvy=6965) [facility] [address] POCT-GLUCOSE [id number] 23:00:00 Test Item Value Reference Range Comments POC-GLUCOSE METER (BEAKER) 251 mg/dL 70-110 TESTED AT [address] (test lrnf=5662) [facility] [address] POCT-GLUCOSE [id number] 18:31:00 Test Item Value Reference Range Comments POC-GLUCOSE METER (BEAKER) 282 mg/dL 70-110 TESTED AT [address] (test rsuq=0731) [facility] [address] HEMOGLOBIN [id number] 08:16:00 Test Item Value Reference Range Comments HEMOGLOBIN A1C (BEAKER) (test goro=394) 12.1 % 4.3-6.1 BASIC METABOLIC [id number] 06:32:00 Test Item Value Reference Range Comments SODIUM (BEAKER) (test 138 meq/L 136-145 tncv=973) POTASSIUM (BEAKER) (test 3.8 meq/L 3.5-5.1 vltf=369) CHLORIDE (BEAKER) (test 104 meq/L 98-107 jptc=040) CO2 (BEAKER) (test 24 meq/L 22-29 ennn=949) BLOOD UREA NITROGEN 7 mg/dL 7-21 (BEAKER) (test lwyv=563) CREATININE (BEAKER) (test 0.73 mg/dL 0.57-1.25 ejpj=717) GLUCOSE RANDOM (BEAKER) 194 mg/dL 70-105 (test szlo=266) CALCIUM (BEAKER) (test 9.8 mg/dL 8.4-10.2 wroz=773) EGFR (BEAKER) (test mL/min/1.73 sq m INSUFFICIENT CLINICAL DATA wpss=3775) TO CALCULATE ESTIMATED GFR. CBC W/PLT COUNT & AUTO [id number] 05:53:00 Test Item Value Reference Range Comments WHITE BLOOD CELL COUNT (BEAKER) (test elpo=751) 6.5 K/ L 3.5-10.5 RED BLOOD CELL COUNT (BEAKER) (test fzlf=085) 4.91 M/ L 4.63-6.08 HEMOGLOBIN (BEAKER) (test asxs=041) 15.2 GM/DL 13.7-17.5 HEMATOCRIT (BEAKER) (test cusl=533) 44.4 % 40.1-51.0 MEAN CORPUSCULAR VOLUME (BEAKER) (test nfrp=108) 90.4 fL 79.0-92.2 MEAN CORPUSCULAR HEMOGLOBIN (BEAKER) (test 31.0 pg 25.7-32.2 ychq=144) MEAN CORPUSCULAR HEMOGLOBIN CONC (BEAKER) (test 34.2 GM/DL 32.3-36.5 duma=099) RED CELL DISTRIBUTION WIDTH (BEAKER) (test 12.0 % 11.6-14.4 ylav=511) PLATELET COUNT (BEAKER) (test glgl=600) 223 K/CU MM 150-450 MEAN PLATELET VOLUME (BEAKER) (test aaof=867) 9.3 fL 9.4-12.4 NUCLEATED RED BLOOD CELLS (BEAKER) (test 0 /100 WBC 0-0 izlt=554) NEUTROPHILS RELATIVE PERCENT (BEAKER) (test 56 % ztes=479) LYMPHOCYTES RELATIVE PERCENT (BEAKER) (test 34 % tkwc=050) MONOCYTES RELATIVE PERCENT (BEAKER) (test 7 % pddd=010) EOSINOPHILS RELATIVE PERCENT (BEAKER) (test 2 % ndsy=223) BASOPHILS RELATIVE PERCENT (BEAKER) (test 1 % qjpq=158) NEUTROPHILS ABSOLUTE COUNT (BEAKER) (test 3.65 K/ L 1.78-5.38 jndm=200) LYMPHOCYTES ABSOLUTE COUNT (BEAKER) (test 2.22 K/ L 1.32-3.57 iewz=394) MONOCYTES ABSOLUTE COUNT (BEAKER) (test 0.46 K/ L 0.30-0.82 bikl=174) EOSINOPHILS ABSOLUTE COUNT (BEAKER) (test 0.10 K/ L 0.04-0.54 vmiz=492) BASOPHILS ABSOLUTE COUNT (BEAKER) (test 0.03 K/ L 0.01-0.08 usev=281) IMMATURE GRANULOCYTES-RELATIVE PERCENT (BEAKER) 0 % 0-1 (test tlmo=4970)
--- OUTSIDE RECORDS SUMMARY | 2018-02-14 19:07 | XMS REPORT | Clinical Summary ---
:1965 Author Organization [facility] Address [address] [place] [address] Phone Care Team Providers Name Role Phone Unavailable Primary Care Provider Unavailable Allergies No Known Allergies Current Medications Prescription Sig. Disp. Refills Start Date End Date Status aspirin 81 MG Take 1 tablet (81 30 tablet 2 02/13/2018 02/13/2019 Active chewable tablet mg total) by mouth daily. atorvastatin Take 1 tablet (80 30 tablet 4 02/12/2018 02/12/2019 Active (LIPITOR) 80 MG mg total) by tablet mouth nightly. clopidogrel (PLAVIX) Take 1 tablet (75 30 tablet 2 02/13/2018 02/13/2019 Active 75 mg tablet mg total) by mouth daily. lisinopril Take 1 tablet (10 30 tablet 3 02/13/2018 02/13/2019 Active (PRINIVIL,ZESTRIL) mg total) by 10 MG tablet mouth daily. metFORMIN Take 2 tablets 120 tablet 2 02/12/2018 02/12/2019 Active (GLUCOPHAGE) 500 MG (1,000 mg total) tablet by mouth 2 (two) times daily with breakfast and dinner. Active Problems Problem Noted Date Acute ischemic stroke ([facility]) 02/11/2018 Encounters Date Type Specialty Care Team Description 02/11/2018 - Hospital Encounter General Internal Paula Lopez, Acute ischemic 02/12/2018 Medicine Guerda Wu MD stroke Jeanine, ([facility]);Essential Mrinalini Zade, hypertension;Hx of arterial ischemic stroke;Noncomplianc e with medication regimen;Left pontine stroke ([facility]);Type 2 diabetes mellitus with other neurologic complication, unspecified whether fci insulin use ([facility]) 02/11/2018 Orders Only General Internal Medicine after 02/13/2017 Social History Tobacco Use Types Packs/Day Years Used Date Never Assessed Sex Assigned at Date Recorded Not on file Last Filed Vital Signs Vital Sign Reading Time Taken Blood Pressure 145/91 02/12/2018 3:15 PM CDT Pulse 84 02/12/2018 3:15 PM CDT Temperature 36.9 C (98.5 F) 02/12/2018 3:15 PM CDT Respiratory Rate 19 02/12/2018 3:15 PM CDT Oxygen Saturation 97% 02/12/2018 3:15 PM CDT Inhaled Oxygen Concentration - - Weight 109.6 kg (241 lb 9.6 oz) 02/11/2018 12:42 AM CDT Height 172.7 cm (5' 8") 02/11/2018 12:42 AM CDT Body Mass Index 36.74 02/11/2018 12:42 AM CDT Plan of Treatment Not on file Results RHYTHM STRIP - SCAN (02/13/2018 11:00 AM)POC-Glucose meter (02/12/2018 2:55 PM) Only the most recent of5 resultswithin the time period is included. Component Value Ref Range POC-Glucose Meter 201 (H)Comment: TESTED AT [address] 70 - 110 mg/[place] [address] Specimen Performing Laboratory Blood [address] [address] TSH/Free T4 If Indicated (02/12/2018 12:04 PM) Component Value Ref Range TSH 0.92 0.35 - 4.94 uIU/mL Specimen Performing Laboratory Blood - Arm, Right [address] [address] ECG 12 lead (02/11/2018 1:42 PM) Specimen Performing Laboratory GE MUSE Narrative Ventricular Rate 89 BPM Atrial Rate 89 BPM P-R Interval 170 ms QRS Duration 84 ms Q-T Interval 372 ms QTC Calculation(Bazett) 452 ms P [place] -9 degrees R [place] 17 degrees T [place] -69 degrees Normal sinus rhythm T wave abnormality, consider inferior ischemia Abnormal ECG No previous ECGs available Confirmed by Braydon LIM BASANT ([id number]) on 02/12/2018 8:45:05 AM Procedure Note Interface, External Ris In - 02/12/2018 8:45 AM CDT Ventricular Rate 89 BPM Atrial Rate 89 BPM P-R Interval 170 ms QRS Duration 84 ms Q-T Interval 372 ms QTC Calculation(Bazett) 452 ms P [place] -9 degrees R [place] 17 degrees T [place] -69 degrees Normal sinus rhythm T wave abnormality, consider inferior ischemia Abnormal ECG No previous ECGs available Confirmed by Braydon LIM BASANT ([id number]) on 02/12/2018 8:45:05 AM CBC with platelet count + automated diff (02/11/2018 5:24 AM) Component Value Ref Range WBC 6.5 3.5 - 10.5 K/L RBC 4.91 4.63 - 6.08 M/L Hemoglobin 15.2 13.7 - 17.5 GM/DL Hematocrit 44.4 40.1 - 51.0 % MCV 90.4 79.0 - 92.2 fL MCH 31.0 25.7 - 32.2 pg MCHC 34.2 32.3 - 36.5 GM/DL RDW 12.0 11.6 - 14.4 % Platelets 223 150 - 450 K/CU MM MPV 9.3 (L) 9.4 - 12.4 fL nRBC 0 0 - 0 /100 WBC % Neutros 56 % % Lymphs 34 % % Monos 7 % % Eos 2 % % Baso 1 % # Neutros 3.65 1.78 - 5.38 K/L # Lymphs 2.22 1.32 - 3.57 K/L # Monos 0.46 0.30 - 0.82 K/L # Eos 0.10 0.04 - 0.54 K/L # Baso 0.03 0.01 - 0.08 K/L Immature Granulocytes-Relative 0 0 - 1 % Specimen Performing Laboratory Blood [address] [address] CBC with platelet count + automated diff (02/11/2018 5:24 AM) Specimen Performing Laboratory Blood Narrative The following orders were created for panel order CBC with platelet count + automated diff. Procedure Abnormality Status --------- ------ CBC with platelet count ...[[id number]]AbnormalFinal result Please view results for these tests on the individual orders. Hemoglobin A1c (02/11/2018 5:24 AM) Component Value Ref Range Hemoglobin A1C 12.1 (H) 4.3 - 6.1 % Specimen Performing Laboratory Blood [address] [address] Basic Metabolic Panel (02/11/2018 5:24 AM) Component Value Ref Range Sodium 138 136 - 145 meq/L Potassium 3.8 3.5 - 5.1 meq/L Chloride 104 98 - 107 meq/L CO2 24 22 - 29 meq/L BUN 7 7 - 21 mg/dL Creatinine 0.73 0.57 - 1.25 mg/dL Glucose 194 (H) 70 - 105 mg/dL Calcium 9.8 8.4 - 10.2 mg/dL EGFR Comment: INSUFFICIENT CLINICAL DATA TO CALCULATE mL/min/1.73 sq m ESTIMATED GFR. Specimen Performing Laboratory Blood [address] [address] after 02/13/2017
[2018-02-14 19:52] LABS: Absolute Monocytes 0.8 K/uL (0.1-1.3); Absolute Neutrophil 10.8 K/uL (1.8-8.0); Basophils % 0.4 % (0-1.3); Eosinophils % 0.6 % (0-4.4); Hematocrit 46.6 % (39.6-49.0); Lymphocytes % 14.5 % (15.3-44.8); MCH 31.2 pg (27.0-35.0); MCV 90.3 fL (80-100); MPV 7.6 fL (7.6-11.3); Monocytes % 5.6 % (3.3-12.3); RBC Red Blood Cell Count 5.16 M/uL (4.33-5.43)
[2018-02-14] MEDS ORDERED: NA CHLORIDE 0.9% 500 ML ONE (19:52)
[2018-02-14 20:11] LABS: Protime INR 0.88
[2018-02-14 20:12] LABS: Magnesium 1.8 mg/dL (1.8-2.4); Potassium 3.9 mmol/L (3.5-5.1)
--- NOTE | 2018-02-14 20:23 | RAD REPORT ---
EXAM DESCRIPTION: CT - Head Brain Wo Cont - 02/14/2018 8:05 pm CLINICAL HISTORY: DIZZINESS CVA. Headache. COMPARISON: Head angio dated 02/14/2018; Head Brain Wo Cont dated 02/09/2018; CT-STROKE BRAIN W/O CONTR AST dated 10/15/2014; Stroke Protocol dated 02/10/2018 TECHNIQUE: All CT scans are performed using dose optimization technique as appropriate and may inclu de automated exposure control or mA/KV adjustment according to patient size. FINDINGS: No intracranial hemorrhage, hydrocephalus or extra-axial fluid collection.Area of gliosis noted right periventricular white matter anteriorly extending into the right basal ganglia.Area of di minished density in the lateral left rod is identified, compatible with subacute infarct and correla ting previous imaging studies. No midline shift is evident. The paranasal sinuses and mastoids are clear. The calvarium is intact. IMPRESSION: No acute intracranial abnormality. Area of diminished density in the left lateral rod seen compatible with subacute infarct and correlating with recent CVA finding on recent prior studies .
--- NOTE | 2018-02-14 20:41 | RAD REPORT ---
EXAM DESCRIPTION: CT - Head angio - 02/14/2018 8:05 pm CLINICAL HISTORY: pain CVA COMPARISON: Head Brain Wo Cont dated 02/09/2018; CT-STROKE BRAIN W/O CONTRAST dated 10/15/2014; Neck An kai dated 02/14/2018; Head Brain Wo Cont dated 02/14/2018; Stroke Protocol dated 02/10/2018 TECHNIQUE: CT angiography of the head was performed with MIPs. All CT scans are performed using dose optimization technique as appropriate and may include automated exposure control or mA/KV adjustment according to patient size. FINDINGS: No evidence of aneurysm is detected. A vascular malformation not seen. A moderate to signi ficant stenosis is again seen involving the basilar artery at the level of the [place] origins. Antegrade flow is seen in the vertebral arteries. The vertebral arteries are codominant. The visualized dural venous sinuses are patent. IMPRESSION: Again noted is a moderate to significant stenosis involving the basilar artery at the le angel of the [place] origins.
--- NOTE | 2018-02-14 20:45 | RAD REPORT ---
EXAM DESCRIPTION: CT - Neck Angio - 02/14/2018 8:05 pm CLINICAL HISTORY: pain CVA, headache COMPARISON: Stroke Protocol dated 02/10/2018; Carotid Artery Bilateral dated 02/09/2018 TECHNIQUE: CT angiography of the neck vessels was performed with MIPs. All CT scans are performed using dose optimization technique as appropriate and may include automated exposure control or mA/KV adjustment according to patient size. FINDINGS: A left aortic arch is identified with normal three vessel configuration of the great vesse ls. No significant flow abnormality is seen of the common carotid bilaterally. Mild calcified atherosclerotic plaque is present at the level of both carotid bulbs resulting in mild narrowing. No significant stenosis is seen. Normal flow is seen within both vertebral arteries. A 5 mm tonsillith is suspected in the left palatine tonsil. IMPRESSION: No significant carotid stenosis is seen.
--- NOTE | 2018-02-14 22:26 | EDPHYS ---
Physician Documentation [facility] Name: Jose Ramon Juan Age: 52 yrs Sex: Male : 1965 Arrival Date: 02/14/2018 Time: 19:07 Bed 19 Private MD: Brad Gurrola T ED Physician Sandeep Weaver HPI: 02/14 20:07 This 52 yrs old Male presents to ER via Ambulatory with complaints of rn Headache, Dizziness. 20:07 The patient presents with feeling off balance. Onset: The symptoms/episode rn began/occurred 1 week(s) ago. Modifying factors: The symptoms are alleviated by nothing, the symptoms are aggravated by standing up, changing position. Severity of symptoms: At their worst the symptoms were mild in the emergency department the symptoms are unchanged. The patient has experienced similar episodes in the past. Reports headache, dizziness, states diagnosed with stroke last week, transferred to [facility], no intervention, has been having intermittent dizziness since then, even after discharge, had a worse episode today around 3pm, feels unsteady and dizzy, improved since then but not normal. Reports also lost some taste in his mouth and left side of mouth numb. No focal weakness of extremities.. Historical: - Allergies: 19:32 No Known Allergies; aj1 - Home Meds: 19:32 Metformin Oral [Active]; Aspirin Oral [Active]; Plavix Oral [Active]; Lisinopril Oral aj1 [Active]; atorvastatin oral oral [Active]; - PMHx: 19:32 CVA; Diabetes - NIDDM; Hypertension; aj1 - Immunization history:: Adult Immunizations up to date. - Social history:: Smoking status: . - Ebola Screening: : Patient denies travel to an Ebola-affected area in the 21 days before illness onset. - Family history:: not pertinent. - Hospitalizations: : No recent hospitalization is reported. ROS: 20:07 Constitutional: Negative for fever, chills, and weight loss, Eyes: Negative for injury, rn pain, redness, and discharge, Neck: Negative for injury, pain, and swelling, Cardiovascular: Negative for chest pain, palpitations, and edema, Respiratory: Negative for shortness of breath, cough, wheezing, and pleuritic chest pain, Abdomen/GI: Negative for abdominal pain, nausea, vomiting, diarrhea, and constipation, MS/Extremity: Negative for injury and deformity, Skin: Negative for injury, rash, and discoloration, Neuro: + headache and dizziness Exam: 20:07 Constitutional: This is a well developed, well nourished patient who is awake, alert, rn and in no acute distress. Head/Face: Normocephalic, atraumatic. Eyes: Pupils equal round and reactive to light, extra-ocular motions intact. Lids and lashes normal. Conjunctiva and sclera are non-icteric and not injected. Cornea within normal limits. Periorbital areas with no swelling, redness, or edema. Neck: Trachea midline, no thyromegaly or masses palpated, and no cervical lymphadenopathy. Supple, full range of motion without nuchal rigidity, or vertebral point tenderness. No Meningismus. Cardiovascular: Regular rate and rhythm with a normal S1 and S2. No gallops, murmurs, or rubs. Normal PMI, no JVD. No pulse deficits. Respiratory: Lungs have equal breath sounds bilaterally, clear to auscultation and percussion. No rales, rhonchi or wheezes noted. No increased work of breathing, no retractions or nasal flaring. Abdomen/GI: Soft, non-tender, with normal bowel sounds. No distension or tympany. No guarding or rebound. No evidence of tenderness throughout. Skin: Warm, dry with normal turgor. Normal color with no rashes, no lesions, and no evidence of cellulitis. MS/ Extremity: Pulses equal, no cyanosis. Neurovascular intact. Full, normal range of motion. Equal circumference. Neuro: Awake and alert, GCS 15, oriented to person, place, time, and situation. Cranial nerves II-XII grossly intact. Motor strength 5/5 in all extremities. Sensory grossly intact. Normal finger to nose, + slightly wide based gait and slow gait, doesn't fall or require assitance when walking. Vital Signs: 19:32 BP 160 / 94; Pulse 103; Resp 18; Temp 97.0(O); Pulse Ox 98% on R/A; Pain 8/10; aj1 20:25 BP 133 / 79; Pulse 97; Resp 18 S; Pulse Ox 95% on R/A; jd3 21:36 BP 140 / 91; Pulse 96; Resp 18 S; Pulse Ox 96% on R/A; jd3 22:15 BP 134 / 90; Pulse 92; Resp 18 S; Pulse Ox 96% on R/A; jd3 MDM: 19:15 Patient medically screened. rn 22:01 Differential diagnosis: CVA, generalized weakness, hyperventilation, hypovolemia, rn idiopathic dizziness, near-syncope, TIA, vertigo. Data reviewed: vital signs, nurses notes, lab test result(s), EKG, radiologic studies, CT scan, and as a result, I will discharge patient. Counseling: I had a detailed discussion with the patient and/or guardian regarding: the historical points, exam findings, and any diagnostic results supporting the discharge/admit diagnosis, lab results, radiology results, the need for outpatient follow up, to return to the emergency department if symptoms worsen or persist or if there are any questions or concerns that arise at home. Special discussion: I discussed with the patient/guardian in detail that at this point there is no indication for admission to the hospital. It is understood, however, that if the symptoms persist or worsen the patient needs to return immediately for re-evaluation. Based on the history and exam findings, there is no indication for further emergent testing or inpatient evaluation. I discussed with the patient/guardian the need to see the neurologist for further evaluation of the symptoms. ED course: No change in CTA/ct head compared to recent MRI, still intermittent symptoms that can be expected from basilar artery stenosis, this was addressed during hospitalization at [facility] just 3 days ago, decision made by neurology to try blood thinners and reeval, no intervention recommended at that time, no new symptoms, will dc home, cont blood thinners, recommend better sugar control, and f/u with neurology, gave examples of when to return given higher risk of stroke due to slower posterior blood flow.. 02/14 19:31 Order name: Basic Metabolic Panel; Complete Time: 20:24 02/14 19:31 Order name: CBC with Diff; Complete Time: 20:24 02/14 19:31 Order name: Magnesium; Complete Time: 20:24 02/14 19:31 Order name: Protime (+inr); Complete Time: 20:24 02/14 19:31 Order name: Ptt, Activated; Complete Time: 20:24 02/14 19:31 Order name: Troponin (emerg Dept Use Only); Complete Time: 20:24 02/14 19:31 Order name: CT Head Brain wo Cont; Complete Time: 20:24 rn 02/14 19:31 Order name: EKG; Complete Time: 19:32 rn 02/14 19:31 Order name: Cardiac monitoring; Complete Time: 19:56 rn 02/14 19:31 Order name: EKG - Nurse/Tech; Complete Time: 20:26 rn 02/14 19:31 Order name: IV Saline Lock; Complete Time: 19:57 rn 02/14 19:46 Order name: Head angio; Complete Time: 21:12 EDMS 02/14 19:46 Order name: Neck Angio; Complete Time: 21:12 EDMS 02/14 19:31 Order name: Labs collected and sent; Complete Time: 19:56 rn 02/14 19:31 Order name: O2 Per Protocol; Complete Time: 19:56 rn 02/14 19:31 Order name: O2 Sat Monitoring; Complete Time: 19:56 rn Administered Medications: 19:56 Drug: NS 0.9% 500 ml Route: IV; Rate: bolus; Site: right antecubital; lp1 20:45 Follow up: Response: No adverse reaction; IV Status: Completed infusion; IV Intake: jd3 500ml Point of Care Testing: Blood Glucose: 19:45 Blood Glucose: 292 mg/dL; lp1 Ranges: Critical Glucose Levels:Adult <50 mg/dl or >400 mg/dl <40 mg/dl or >180 mg/dl Disposition: 02/14/18 22:25 Discharged to Home. Impression: Dizziness and giddiness, Basilar Artery Stenosis. - Condition is Stable. - Discharge Instructions: Dizziness, Vertebrobasilar Disease. - Medication Reconciliation Form, Thank You Letter, Antibiotic Education, Prescription Opioid Use form. - Follow up: Brad Gurrola MD; When: As needed; Reason: Recheck today's complaints, Re-evaluation by your physician. - Problem is new. - Symptoms have improved. Signatures: Dispatcher [employer] EDSilvina Ramirez, RN RN aj1 Sandeep Weaver MD MD rn Pena, Laura, RN RN lp1 Marcus Saez RN RN jd3 Corrections: (The following items were deleted from the chart) 22:36 22:25 02/14/2018 22:25 Discharged to Home. Impression: Dizziness and giddiness; Basilar jd3 Artery Stenosis. Condition is Stable. Forms are Medication Reconciliation Form, Thank You Letter, Antibiotic Education, Prescription Opioid Use. Follow up: Brad Gurrola; When: As needed; Reason: Recheck today's complaints, Re-evaluation by your physician. Problem is new. Symptoms have improved. rn
--- NOTE | 2018-02-14 22:26 | ER ---
Nurse's Notes [facility] Name: Jose Ramon Juan Age: 52 yrs Sex: Male : 1965 Arrival Date: 02/14/2018 Time: 19:07 Bed 19 Private MD: Brad Gurrola T Diagnosis: Dizziness and giddiness;Basilar Artery Stenosis Presentation: 02/14 19:21 Presenting complaint: Patient states: Dizziness, headache, numbness in his mouth, and a aj1 loss of the sensation of taste that started at approximately 1500 today. Patient states that he was just discharged from [facility] on for a stroke. Patient denies any weakness, or vision change but states he has never had any weakness or vision changes with his previous stroke. Palliative Senior Np are equal and strong bilaterally, equal smile. Transition of care: patient was not received from another setting of care. Onset of symptoms was February 14, 2018 at 15:00. Risk Assessment: Do you want to hurt yourself or someone else? Patient reports no desire to harm self or others. Initial Sepsis Screen: Does the patient meet any 2 criteria? No. Patient's initial sepsis screen is negative. Does the patient have a suspected source of infection? No. Patient's initial sepsis screen is negative. Care prior to arrival: None. 19:21 Method Of Arrival: Ambulatory [facility] 19:21 Acuity: SOURAV 3 aj1 Triage Assessment: 19:32 Headache History: The patient has had previous headaches and this one is similar to aj1 previous episodes. General: Appears in no apparent distress. uncomfortable, Behavior is calm, cooperative, appropriate for age. Pain: Complains of pain in head Pain currently is 8 out of 10 on a pain scale. Pain began 4 hours ago. Also complains of numbness to mouth. Neuro: Level of Consciousness is awake, alert, obeys commands, Palliative Senior Np are equal bilaterally Moves all extremities. Full function Speech is normal, Facial symmetry appears normal, Reports numbness in mouth. Cardiovascular: Patient's skin is warm and dry. Respiratory: Airway is patent Respiratory effort is even, unlabored, Respiratory pattern is regular, symmetrical. Historical: - Allergies: 19:32 No Known Allergies; aj1 - Home Meds: 19:32 Metformin Oral [Active]; Aspirin Oral [Active]; Plavix Oral [Active]; Lisinopril Oral aj1 [Active]; atorvastatin oral oral [Active]; - PMHx: 19:32 CVA; Diabetes - NIDDM; Hypertension; aj1 - Immunization history:: Adult Immunizations up to date. - Social history:: Smoking status: . - Ebola Screening: : Patient denies travel to an Ebola-affected area in the 21 days before illness onset. - Family history:: not pertinent. - Hospitalizations: : No recent hospitalization is reported. Screenin:57 Abuse screen: Denies threats or abuse. Denies injuries from another. Nutritional lp1 screening: No deficits noted. Tuberculosis screening: No symptoms or risk factors identified. Fall Risk None identified. 20:22 Fall Risk No fall in past 12 months (0 pts). IV access (20 points). Ambulatory Aid- jd3 None/Bed Rest/Nurse Assist (0 pts). Gait- Weak (10 pts.). Mental Status- Oriented to own ability (0 pts). Total [place]more Fall Scale indicates Low Risk Score (25-44 pts). Fall prevention measures have been instituted. Side Rails Up X 2 Placed close to Nursing Station Frequent Obs/Assesments occuring Family Present and informed to notify staff if they need to leave bedside. Assessment: 20:17 General: Appears in no apparent distress. comfortable, Behavior is calm, cooperative, jd3 appropriate for age. Pain: Denies pain. Neuro: Level of Consciousness is awake, alert, obeys commands, Oriented to person, place, time, situation, Appropriate for age Moves all extremities. Gait is unsteady, Speech is normal, Facial symmetry appears normal, Pupils are PERRLA, Reports tingling and loss of taste sensation in mouth.. Cardiovascular: Heart tones S1 S2 present Capillary refill < 3 seconds Patient's skin is warm and dry. Respiratory: Airway is patent Respiratory effort is even, unlabored, Respiratory pattern is regular, symmetrical, Breath sounds are clear bilaterally. GI: Abdomen is round Bowel sounds present X 4 quads. Abd is soft and non tender X 4 quads. Patient currently denies nausea, vomiting. : No signs and/or symptoms were reported regarding the genitourinary system. EENT: No signs and/or symptoms were reported regarding the EENT system. Derm: Skin is intact, Skin is dry, Skin is normal, Skin temperature is warm. Musculoskeletal: Circulation, motion, and sensation intact. Range of motion: intact in all extremities. 21:36 Reassessment: Patient appears in no apparent distress at this time. No changes from jd3 previously documented assessment. Patient and/or family updated on plan of care and expected duration. Pain level reassessed. Patient is alert, oriented x 3, equal unlabored respirations, skin warm/dry/pink. 22:01 Reassessment: Dr. Weaver at bedside discussing plan of pt care. jd3 22:16 Reassessment: Patient appears in no apparent distress at this time. Patient and/or jd3 family updated on plan of care and expected duration. Pain level reassessed. Patient is alert, oriented x 3, equal unlabored respirations, skin warm/dry/pink. 22:35 Reassessment: Patient appears in no apparent distress at this time. Patient and/or jd3 family updated on plan of care and expected duration. Pain level reassessed. Patient is alert, oriented x 3, equal unlabored respirations, skin warm/dry/pink. pt reported understanding of discharge instructions, even and steady gait upon discharge. Vital Signs: 19:32 BP 160 / 94; Pulse 103; Resp 18; Temp 97.0(O); Pulse Ox 98% on R/A; Pain 8/10; aj1 20:25 BP 133 / 79; Pulse 97; Resp 18 S; Pulse Ox 95% on R/A; jd3 21:36 BP 140 / 91; Pulse 96; Resp 18 S; Pulse Ox 96% on R/A; jd3 22:15 BP 134 / 90; Pulse 92; Resp 18 S; Pulse Ox 96% on R/A; jd3 ED Course: 19:07 Patient arrived in ED. mr 19:07 Brad Gurrola MD is Private Physician. mr 19:15 Sandeep Weaver MD is Attending Physician. rn 19:29 Triage completed. aj1 19:32 Arm band placed on. aj1 19:45 Inserted saline lock: 20 gauge in right antecubital area, using aseptic technique. lp1 Blood collected. 19:55 Patient has correct armband on for positive identification. Placed in gown. Bed in low lp1 position. Call light in reach. ict project manager on. Pulse ox on. NIBP on. 20:05 CT Head Brain wo Cont In Process Unspecified. EDMS 20:05 Head angio In Process Unspecified. EDMS 20:05 Neck Angio In Process Unspecified. EDMS 20:05 CT completed. Patient moved to CT via wheelchair. Patient moved back from CT. cw1 20:15 Marcus Saez, RN is Primary Nurse. jd3 22:25 Brad Gurrola MD is Referral Physician. rn 22:34 No provider procedures requiring assistance completed. IV discontinued, intact, jd3 bleeding controlled, No redness/swelling at site. Pressure dressing applied. Administered Medications: 19:56 Drug: NS 0.9% 500 ml Route: IV; Rate: bolus; Site: right antecubital; lp1 20:45 Follow up: Response: No adverse reaction; IV Status: Completed infusion; IV Intake: jd3 500ml Point of Care Testing: Blood Glucose: 19:45 Blood Glucose: 292 mg/dL; lp1 Ranges: Intake: 20:45 IV: 500ml; Total: 500ml. jd3 Outcome: 22:25 Discharge ordered by MD. rn 22:34 Discharged to home ambulatory, with family. jd3 22:34 Condition: stable 22:34 Discharge instructions given to patient, family, Instructed on discharge instructions, follow up and referral plans. Demonstrated understanding of instructions, follow-up care. 22:36 Patient left the ED. jd3 Signatures: Dispatcher [employer] Silvina Montoya, RN RN [id number] Tania Alonzo Roman, MD MD rn Woodley, Crystal cw1 Carli Lopez RN RN lp1 Marcus Saez, RN RN jd3
[2018-02-14 22:42] VITALS: TEMP 97
[2018-02-14 22:44] VITALS: O2SAT 96
[2018-02-14 22:45] VITALS: BP 134/90
--- NOTE | 2018-02-15 10:35 | EKG ---
Test Date: 2018-02-14 Test Time: 20:34:26 Recruitment And Outreach Assistant: KOBE MEASUREMENT RESULTS: Intervals: Rate: 97 TX: 168 QRSD: 84 QT: 354 QTc: 449 [place]: P: 48 TX: 168 QRS: 53 T: -79 INTERPRETIVE STATEMENTS: Normal sinus rhythm T wave abnormality, consider inferior ischemia Abnormal ECG Compared to ECG 02/09/2018 16:48:57 Sinus tachycardia no longer present T-wave abnormality still present Possible ischemia still present Electronically Signed On 02-15-18 10:33:56 CDT by Mark Cook
== END 2018-02-14 22:36 | disposition home or self-care (01) ==
LOC: ER 19:05
DX: I65.1 Occlusion and stenosis of basilar artery (principal); I10 Essential (primary) hypertension; E11.9 Type 2 diabetes mellitus without complications; Z79.01 Long term (current) use of anticoagulants; Z79.82 Long term (current) use of aspirin; Z86.73 Personal history of transient ischemic attack (TIA), and cerebral infarction without residual deficits
CPT/HCPCS: 36415; 70450; 70496; 70498; 80048; 82962; 83735; 84484; 85025; 85610; 85730; 93005; 96360; 99285; Q9967